=== PATIENT | male | born 1990 | race Two or more races ===

== ENCOUNTER 2021-05-27 12:35 | Emergency (ER) | payer OTHER ==
[~2021-05-27] VITALS: Ht 175.3 cm; Wt 77.1 kg
--- NOTE | 2021-05-27 12:56 | NUR ---
syncope- witnessed by his co-worker
--- NOTE | 2021-05-27 12:57 | NUR ---
no neuro deficit
[2021-05-27] MEDS ORDERED: IV NS 0.9% 1,000 ML BAG IV ONE (13:00)
--- NOTE | 2021-05-27 13:09 | NUR ---
pt to radiology for head ct scan via [facility].
[2021-05-27 13:30] LABS: BASOPHILS % (AUTO) 0.3 % (0.0-2.0); EOSINOPHILS % (AUTO) 0.1 % (0.0-6.0); HEMATOCRIT 40 % (39-51); HEMOGLOBIN 13.7 g/dL (13.5-17.5); LYMPHOCYTES # (AUTO) 1.1 K/uL (0.8-4.8); LYMPHOCYTES % (AUTO) 23.8 % (20.0-44.0); MEAN CORPUSCULAR HGB CONC 34 g/dl (31.0-36.0); MEAN CORPUSCULAR VOLUME 89 fL (80-96); MONOCYTES # (AUTO) 0.5 K/uL (0.1-1.30); NEUTROPHILS # (AUTO) 2.9 K/uL (1.8-8.9); NEUTROPHILS % (AUTO) 64.8 % (43.0-81.0); PLATELET COUNT (AUTO) 222 K/uL (150-450); RED BLOOD CELL COUNT(AUTO) 4.54 MIL/uL (4.5-6.0); WHITE BLOOD COUNT (AUTO) 4.5 K/uL (4.3-11.0)
[2021-05-27 13:36] LABS: CALCIUM, SERUM 8.2 mg/dL (8.5-10.1); CARBON DIOXIDE 25 mmol/L (21-32); CHLORIDE 105 mmol/L (98-107); CREATININE 0.9 mg/dL (0.6-1.3); GLUCOSE 113 mg/dL (74-106); SODIUM SERUM 142 mmol/L (136-145); UREA NITROGEN, BLOOD 10 mg/dL (7-18)
[2021-05-27 13:45] LABS: ALANINE AMINOTRANSFERASE 21 U/L (12-78); ALBUMIN 3.5 g/dL (3.4-5.0); ALKALINE PHOSPHATASE 69 U/L (46-116); ASPARTATE AMINOTRANSFERASE 20 U/L (15-37); BILIRUBIN,DIRECT 0.1 mg/dL (0.0-0.2); BILIRUBIN,TOTAL 0.4 mg/dL (0.2-1.0); TOTAL PROTEIN, SERUM 7.6 g/dL (6.4-8.2)
--- NOTE | 2021-05-27 14:43 | NUR ---
LAB CALLED TO F/U ON D DIMER,SPOKE WITH JACKELIN
[2021-05-27] MEDS ORDERED: POTASSIUM CHLORIDE 20 MEQ TAB.PRT.SR PO ONE ×2 (15:00→15:11)
[2021-05-27] MEDS ORDERED: AMOX500T2 PO (16:19)
[2021-05-27] MEDS ORDERED: POTA20TA83 PO (16:19)
[2021-05-27] MEDS ORDERED: IBUP-1955 PO (16:44)
[2021-05-27 17:11] VITALS: BP 125/60
--- NOTE | 2021-05-27 17:11 | NUR ---
Patient discharged to home in stable condition. Written and verbal after care instructions given. Patient verbalizes understanding of instruction.IV removed. Catheter intact and site benign. Pressure and 4x4 applied to site. No bleeding noted.
== END 2021-05-27 17:12 | disposition home or self-care (01) ==
LOC: ER 12:41
DX: U07.1 COVID-19 (principal); R55 Syncope and collapse; E87.6 Hypokalemia; R91.8 Other nonspecific abnormal finding of lung field; R07.89 Other chest pain
CPT/HCPCS: 36415; 70450; 71045; 80048; 80076; 83605; 84484; 85025; 85730; 86850; 93005; 96360; 99285; J7030 ×2; U0003; C9803